=== PATIENT | female | born 1980 | race Asian ===

== ENCOUNTER → 2023-05-09 12:37 | Outpatient (REF) | payer OTHER, SELFPAY ==
[2023-05-09 20:01] LABS: Rubella Low Positive
[2023-05-11 16:20] LABS: Mumps Virus IgG Negative; Rubeola (Measles) IgG Positive
[2023-05-11 17:58] LABS: Varicella Zoster IgG (VZV) Negative
== END ==
LOC: OHS 12:37
PROVIDERS: ATTENDING PHYSICIAN Nurse Practitioner Family
DX: Z23 Encounter for immunization (principal)
CPT/HCPCS: 36415; 86735; 86762; 86765; 86787

== ENCOUNTER 2025-01-16 12:18 | Emergency (ER) | payer OTHER, SELFPAY ==
[2025-01-16 12:24] VITALS: BP 158/98
[2025-01-16 12:39] VITALS: BMI 28.1
--- NOTE | 2025-01-16 12:39 | ED.GENMED ---
History of Present Illness
General
Chief Complaint: Urinary Symptoms
Time Seen by Provider: 01/16/25 12:28
History of Present Illness
History of Present Illness:
44-year-old female with no past medical history presents to the emergency department for evaluation of dysuria and urinary urgency for the past 2 days. Denies any hematuria, fever, flank pain, nausea, or vomiting. No concern for STI.
Review of Systems
Review of Systems
Allergies reviewed?: Yes
All Other Systems: ROS reviewed and negative except as documented in HPI and ROS
Phy Exam
Physical Exam
Physical Exam:
GEN: Well appearing, NAD, WDWN
HEENT: Oral mucosa moist, no scleral icterus
Cardiac: Regular rate
Lung: No respiratory distress, no tachypnea
MSK: No gross deformity or injuries
Skin: Good color, no pallor or jaundice, no rashes
Neuro: AO x3, moves all extremities freely
Psych: Calm, cooperative
Course
Orders/Labs/Results
Orders:
Orders
01/16/25 12:39
Urinalysis Reflex To Culture Urgent
Date Specimen was Collected: 01/16/25
Time Specimen was Collected: 12:35
Urine Microscopic Reflex Cult Urgent
Urine Culture Urgent
VENUS Source: U
Specimen Description:
Obtained by: Random
Date Specimen was Collected: 01/16/25
Time Specimen was Collected: 12:35
Nitrofurantoin Monohydrate [Macrobid] 100 mg PO NOW STA
Abnormal Lab Results
01/16/25
12:39
Urine Ketones 1+ A
(Negative)
Ur Occult Blood Reflex 4+ A
(Negative)
Leukocyte Esterase Rfl 3+ A
(Negative)
Urine RBC 60-70 A /HPF
(0-2)
Urine Bacteria (Reflex) Few A
(Negative)
Urine Glucose 4+ A
(Negative)
Urine Albumin (Reflex) 4+ A
(Neg - Trace)
Vital Signs
Initial and Last Documented VS:
Initial Vital Signs
Temp Pulse Resp BP Pulse Ox
98.2 F 98 20 158/98 98
01/16/25 12:24 01/16/25 12:24 01/16/25 12:24 01/16/25 12:24 01/16/25 12:24
Last Documented Vital Signs
Temp Pulse Resp BP Pulse Ox
98.3 F 90 18 150/90 98
01/16/25 12:51 01/16/25 12:51 01/16/25 12:51 01/16/25 12:51 01/16/25 12:51
MDM/Problems Addressed
MDM/Problems Addressed:
Symptoms consistent with acute cystitis, no concern for pyelonephritis or ureterolithiasis, will start nitrofurantoin empirically
*Pulse Oximetry
SaO2: 98
Oxygen Mode of Delivery: Room air
Patient hypoxic: no
*Critical Care Note
Total Time (30-74mins, 75-104mins- exclusive of procedures): Not Applicable
ED Attending Note
-
Portions of this chart may have been created with voice recognition software.� Occasional wrong word or��sound alike� substitutions may have occurred due to the inherent limitations of voice recognition software.
Discharge Plan
Departure
Patient Disposition: Home (Routine Discharge)
Date of Disposition: 01/16/25
Time of Disposition: 12:39
Patient with high blood pressure during this ER visit?: No
Discharge Problem:
Acute cystitis
Instructions: Urinary Tract Infection, Adult (DC)
Prescriptions:
New
nitrofurantoin macrocrystal 100 mg capsule
100 mg PO BID Qty: 9 0RF
Interventions
Interventions:
*Risk Screen - Suicide Last Done: 01/16/25 12:35
*General Assessment Last Done: 01/16/25 12:24
*Neglect/Abuse Screening Last Done: 01/16/25 12:35
*ED- Fall Risk Assessment Last Done: 01/16/25 12:35
*ED COVID-19 Vaccine History Last Done: 01/16/25 12:35
*ED Influenza Vaccine History Last Done: 01/16/25 12:35
*Nursing Disposition Last Done: 01/16/25 12:51
ED-Female Genitourinary Assessment Last Done: 01/16/25 12:35
Discharge Date and Time
Print Language: NOR[place]GI[place]
[2025-01-16] MEDS: MACROBID 100 MG PO (12:46)
[2025-01-16 12:47] LABS: Urine Character Cloudy (Clear)
--- NOTE | 2025-01-16 12:50 | EDRN ---
Reviewed discharge instructions with patient. Verbalized understanding. Ambulated with steady gait to the lobby.
[2025-01-16 12:51] VITALS: BP 150/90
[2025-01-16 12:56] LABS: Urine Red Blood Cell 60-70 /HPF (0-2); Urine Squamous Cell 0-2 /LPF (Few); Urine White Cell 0-2 /HPF (0-5)
== END 2025-01-16 12:50 | disposition home or self-care (01) ==
LOC: EMR 12:18
PROVIDERS: Physician Assistant; EMERGENCY PHYSICIAN Emergency Medicine
DX: N30.00 Acute cystitis without hematuria (principal)
CPT/HCPCS: 99283; 81003; 81015; 87086; 87088